=== PATIENT | male | born 1985 | race Hispanic/Latino ===

== ENCOUNTER 2020-04-13 13:17 | Observation (INO) | payer SELFPAY ==
[~2020-04-13] VITALS: Ht 167.6 cm; Wt 98.1 kg
--- NOTE | 2020-04-13 13:20 | NUR ---
MOVED TO STRETCHER USING SHEET. CHANGED TO GOWN. MONITORS APPLIED. PT SOUTH SUDANESE SPEAKING ONLY. PT REPORTS HAS BEEN DRINKING ETOH AND FELL GETTING ABRASION TO RIGHT CHEEK PRIOR TO ARRIVAL EMS.
--- NOTE | 2020-04-13 13:20 | NUR ---
PT TO ROOM 10 VIA STRETCHER VIA EMS.
--- NOTE | 2020-04-13 13:54 | NUR ---
LANGUAGE LINE USED TO ASSIST WITH OBTAINING URINE SAMPLE
[2020-04-13 14:09] LABS: URINE BILIRUBIN - DIPSTICK NEGATIVE (NEGATIVE); URINE BLOOD DIPSTICK NEGATIVE (NEGATIVE); URINE COLOR YELLOW; URINE GLUCOSE - DIPSTICK NEGATIVE (NEGATIVE); URINE KETONE NEGATIVE (NEGATIVE); URINE LEUK ESTERASE NEGATIVE (NEGATIVE); URINE NITRITE - DIPSTICK NEGATIVE (Negative); URINE PROTEIN - DIPSTICK NEGATIVE (NEG-TRACE); URINE SPECIFIC GRAVITY <=1.005; URINE UROBILINOGEN - DIPSTICK 0.2 E.U./dL (0.2)
[2020-04-13 14:30] LABS: HEMATOCRIT 42.8 % (39.0-50.0); HEMOGLOBIN 13.9 g/dl (14.0-18.0); IMMATURE GRANULOCYTES 0.5 % (0.0-5.0); MEAN CELL VOLUME 88.2 fL CALC (80.0-100.0); MEAN CORPUSCULAR HGB 28.7 pG CALC (26.0-32.0); MEAN CORPUSCULAR HGB CONC 32.5 g/dL CAL (32.0-36.0); NEUT# 2.7 thou/uL (1.82-7.42); RED BLOOD COUNT 4.85 mill/uL (4.70-6.10); RED CELL DISTRI WIDTH 12.7 % (11.5-15.5)
[2020-04-13 14:53] LABS: ALBUMIN 4.2 g/dL (3.2-5.0); ALKALINE PHOSPHATASE 117 u/l (38-126); ANION GAP 14 (6-22 (CALC)); BILIRUBIN, TOTAL 0.2 mg/dL (0.0-1.4); BUN 8 mg/dL (9-20); BUN/CREATININE RATIO 12 (12-20 (CALC)); CARBON DIOXIDE 24 mmol/l (22-30); CHLORIDE 106 mmol/l (95-108); CPK 176 u/l (52-200); CREATININE 0.7 mg/dL (0.7-1.3); D-DIMER 0.24 mg/L (0.19-0.60); ETHYL ALCOHOL 291 mg/dl (0-30); GFR > 60 ML/MIN (>=60 (CALC)); GFR FOR AFR.AMER. > 60 ML/MIN (>=60 (CALC)); POTASSIUM 3.9 mmol/l (3.5-5.1); SGOT/AST 52 u/l (17-59); SODIUM 140 mmol/l (137-146); TOTAL PROTEIN 7.8 g/dL (6.3-8.2)
[2020-04-13 14:57] LABS: ACT PARTIAL THROMBO TIME 24.2 SECONDS (20.0-32.5); PROTHROMBIN TIME 9.6 SECONDS (9.0-12.5)
[2020-04-13 15:05] LABS: MYOGLOBIN 37 ng/mL (0 - 121)
--- NOTE | 2020-04-13 15:18 | NUR ---
PT TRANSPORTED TO CT VIA STRETCHER
[2020-04-13 15:23] LABS: TSH, 3RD GENERATION 1.27 uIU/mL (0.47 - 4.68)
--- NOTE | 2020-04-13 15:55 | NUR ---
PT RETURNED FROM XRAY. MONITORS PLACED. PT EASILY AROUSABLE. AO X 3. SKIN PINK WARM AND DRY. MOVES ALL EXTREMITIES. VOIDED 1000 ML CLEAR YELLOW URINE
--- NOTE | 2020-04-13 17:00 | NUR ---
PT SLEEPING. RESPONDS TO VERBAL STIMULI
--- NOTE | 2020-04-13 18:12 | NUR ---
PT EASILY ROUSED WITH VERBAL STIMULI. DECREASED SLURRING OF SPEECH. RESTING ON STRETCHER AWAITING ADMISSION ORDERS
--- NOTE | 2020-04-13 18:31 | NUR ---
REPORT GIVEN TO JESSICA PETERSTORY ANALYST
--- NOTE | 2020-04-13 18:40 | NUR ---
PT TAKEN VIA STRETCHER TO MED SURG
--- NOTE | 2020-04-13 18:49 | NUR ---
PT RECEIVED FROM [facility] IN THE ED. PT TRANSPORTED VIA STRETCHER AND TRANSFERED TO THE BED.
[2020-04-13 19:00] VITALS: BP 135/66
--- NOTE | 2020-04-13 19:06 | NUR ---
REPORT FROM JESSICA PETER. PT NOTED RESTING IN BED. ALERT AND ORIENTED X3. 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 PT DENIES ANY PAIN OR DISCOMFORT. PT AMBULATED TO BATHROOM WITH STEADY GAIT. ABRASIONS NOTED TO RIGHT CHEEK AND ELBOW. IV SITE APPEARS HEALTHY. DISCUSSED POC. PT VERBALIZED UNDERSTANDING. CALL LIGHT WITHIN REACH. WILL CONTINUE TO MONITOR.
--- NOTE | 2020-04-13 21:46 | NUR ---
IV SITE NOT FLUSHING PROPERLY AT THIS TIME. NEW IV SITE STARTED X1 ATTEMPT #22 LFA. PT TOLERATED WELL. BRISK BLOOD RETURN NOTED. BANANA BAG INITIATED, PT EDUCATED AT THIS TIME. CALL LIGHT WITHIN REACH. WILL CONTINUE TO MONITOR.
--- NOTE | 2020-04-14 01:12 | NUR ---
PT RESTING IN BED WITH EYES CLOSED. NO APPARENT DISTRESS NOTED. RESPIRATIONS EVEN AND UNLABORED. PT WAKES EASILY, DENIES ANY PAIN OR DISCOMFORT. CALL LIGHT WITHIN REACH. WILL CONTINUE TO MONITOR.
[2020-04-14 04:30] VITALS: BP 146/74
--- NOTE | 2020-04-14 05:12 | NUR ---
PT RESTING IN BED WITH EYES CLOSED. NO APPARENT DISTRESS NOTED. RESPIRATIONS EVEN AND UNLABORED. CALL LIGHT WITHIN REACH. WILL CONTINUE TO MONITOR.
--- NOTE | 2020-04-14 07:10 | NUR ---
REPORT RECEIVED FROM ERINN BOBBY.
[2020-04-14 07:14] LABS: HEMATOCRIT 42.5 % (39.0-50.0); HEMOGLOBIN 13.6 g/dl (14.0-18.0); IMMATURE GRANULOCYTES 0.4 % (0.0-5.0); MEAN CORPUSCULAR HGB 28.8 pG CALC (26.0-32.0); NEUT# 5.36 thou/uL (1.82-7.42); RED BLOOD COUNT 4.72 mill/uL (4.70-6.10); RED CELL DISTRI WIDTH 13.1 % (11.5-15.5)
[2020-04-14 07:40] LABS: ALBUMIN 3.7 g/dL (3.2-5.0); ALKALINE PHOSPHATASE 88 u/l (38-126); ANION GAP 10 (6-22 (CALC)); BUN 8 mg/dL (9-20); BUN/CREATININE RATIO 14 (12-20 (CALC)); CARBON DIOXIDE 25 mmol/l (22-30); CHLORIDE 105 mmol/l (95-108); CREATININE 0.6 mg/dL (0.7-1.3); GFR > 60 ML/MIN (>=60 (CALC)); GFR FOR AFR.AMER. > 60 ML/MIN (>=60 (CALC)); POTASSIUM 4.3 mmol/l (3.5-5.1); SGOT/AST 40 u/l (17-59); SODIUM 136 mmol/l (137-146)
[2020-04-14 08:10] LABS: BILIRUBIN, TOTAL 0.3 mg/dL (0.0-1.4)
[2020-04-14 08:45] VITALS: BP 145/90
--- NOTE | 2020-04-14 08:45 | NUR ---
PT RESTING IN SEMI FOWLERS POSITION,A&O X3 AND MOSTLY TUNISIAN SPEAKING;VS OBTAINED AND ASSESSMENT COMPLETED;PT DENIES ANY CURRENT PAIN OR DISCOMFORTS,PAIN SCALE AND REPORTING EDUCATED;RESPIRATIONS EVEN AND UNLABORED ON RA,CLEAR LUNG SOUNDS;ABDOMEN DISTENDED/SOFT ON PALPATION AND ACTIVE IN ALL 4 QUADRANTS;STRONG PEDAL PULSES;SKIN INTACT;#22G TO LFA INFUSING A BANANA BAG PER ORDER,SIRE APPEARS HEALTHY;PT DENIES ANY ADDITIONAL NEEDS AT THIS TIME AND IS ENCOURAGED TO CALL FOR ASSISTANCE IF NEEDED;CLAL LIGHT IN REACH;WILL CONTINUE TO MONITOR
--- NOTE | 2020-04-14 12:50 | NUR ---
PT RESTING IN SEMI FOWLERS POSITION;RESPIRATIONS EVEN AND UNLABORED ON RA;PT DENIES ANY CURRENT PAIN OR NEEDS;IV SITE PATENT;ASSESSMENT REMAINS UNCHANGED AT THIS TIME;ENCOURAGED TO CALL FOR ASSISTANCE IF NEEDED;CALL LIGHT IN REACH;WILL CONTINUE TO MONITOR
[2020-04-14] MEDS ORDERED: TAMSULOSIN0.4 MG PO (14:18)
[2020-04-14] MEDS ORDERED: METFORMIN500 M2 PO (14:18)
[2020-04-14 15:40] VITALS: BP 137/81
--- NOTE | 2020-04-14 15:40 | NUR ---
PT OOB RESTING IN RECLINER;RESPIRATIONS EVEN AND UNLABORED ON RA;PT DENIES ANY CURRENT PAIN OR DISCOMFORTS;IV SITE PATENT;VS OBTAINED;PT EDUCATED ON PLANS TO D/C HOME, [facility] TO TRANSLATE DISCHARGE;PT DENIES ANY ADDITIONAL NEEDS AT THIS TIME AND IS ENCOURAGED TO CALL FOR ASSISTANCE IF NEEDED;CALL LIGHT IN REACH;WILL CONTINUE TO MONITOR
--- NOTE | 2020-04-14 16:40 | NUR ---
ALL DISCHARGE INSTRUCTIONS AND RX PROVIDED BY ERINN WHIPPLE;ALL INSTRUCTIONS DISCUSSED AND PT EDUCATED ON POC.LETTER FOR WORK PROVIDED BY ERINN WHIPPLE;IV SITE REMOVED WITH CATHETER INTACT;WHEELCHAIR TO BE PROVIDED FOR D/C HOME;[facility] TO TRANSPORT PT HOME;WILL CONTINUE TO MONITOR
--- NOTE | 2020-04-14 17:25 | NUR ---
Discharge instructions given. Patient verbalizes understanding of same. Discharged in stable condition via Wheelchair to Home with family. All belongings sent with pt. PT TRANSPORTED TO [facility] IN STABLE CONDITION VIA WHEELCHAIR ACCOMPANIED BY [facility] TO TRANSPORT PT HOME.
== END 2020-04-14 17:28 | disposition home or self-care (01) | DRG 896 ==
LOC: ED 13:17 → EDBD 13:17 → ED 14:43 → ED-I 16:40 → ED 16:49 → MS2 16:50
PROVIDERS: ADMIT Internal Medicine; ATTEND Internal Medicine
DX: F10.129 Alcohol abuse with intoxication, unspecified (principal); U07.1 COVID-19; N13.2 Hydronephrosis with renal and ureteral calculous obstruction; S00.81XA Abrasion of other part of head, initial encounter; E11.9 Type 2 diabetes mellitus without complications; W19.XXXA Unspecified fall, initial encounter; Y90.8 Blood alcohol level of 240 mg/100 ml or more
CPT/HCPCS: G0378; Q9967